=== PATIENT | male | born 1975 | race Caucasian/White ===

== ENCOUNTER 2018-02-07 12:37 | Emergency (ER) | payer MEDICAID | END 2018-02-07 17:56 | disposition left against medical advice (07) | LOC: ER 12:37 | DX: R51 Headache (principal); Z53.21 Procedure and treatment not carried out due to patient leaving prior to being seen by health care provider ==

== ENCOUNTER 2018-08-04 14:41 | Emergency (ER) | payer MEDICAID ==
[~2018-08-04] VITALS: Ht 188 cm; Wt 92.0 kg
[2018-08-04 14:49] VITALS: BP 142/86
== END 2018-08-04 15:28 | disposition home or self-care (01) ==
LOC: ER 14:42
DX: S81.012A Laceration without foreign body, left knee, initial encounter (principal); Z48.02 Encounter for removal of sutures; Z86.14 Personal history of Methicillin resistant Staphylococcus aureus infection; Z88.8 Allergy status to other drugs, medicaments and biological substances; W26.8XXA Contact with other sharp object(s), not elsewhere classified, initial encounter; Y93.89 Activity, other specified; Y92.89 Other specified places as the place of occurrence of the external cause; Y99.8 Other external cause status
CPT/HCPCS: 99281

== ENCOUNTER 2018-08-17 16:14 | Emergency (ER) | payer MEDICAID ==
[~2018-08-17] VITALS: Ht 190.5 cm; Wt 109.1 kg
[2018-08-17 16:29] VITALS: BP 130/70
[2018-08-17] MEDS ORDERED: DOXYCYCLINE 100MG CAPSULE PO STA (17:28)
[2018-08-17] MEDS ORDERED: cephalexin 250mg capsule PO ONE (17:30)
[2018-08-17 17:50] LABS: BASOPHILS # (AUTO) 0.1 X10'3 (0-0.2); BASOPHILS % (AUTO) 0.6 % (0-1); EOSINOPHILS # (AUTO) 0.2 X10'3 (0-0.9); EOSINOPHILS % (AUTO) 1.1 % (0-6); HEMATOCRIT 39.1 % (42.0-52.0); HEMOGLOBIN 13.1 g/dl (14.0-17.9); LYMPHOCYTES # (AUTO) 2.9 X10'3 (1.1-4.8); LYMPHOCYTES % (AUTO) 16.7 % (21-51); MEAN CORPUSCULAR HEMOGLOBIN 29.9 PG (27.0-31.0); MEAN CORPUSCULAR HGB CONC 33.6 g/dL (33.0-36.5); MEAN PLATELET VOLUME 6.8 FL (7.4-10.4); MONOCYTES # (AUTO) 1.5 X10'3 (0-0.9); MONOCYTES % (AUTO) 8.7 % (2-12); NEUTROPHILS # (AUTO) 12.5 X10'3 (1.8-7.7); NEUTROPHILS % (AUTO) 72.9 % (42-75); PLATELET COUNT 390 X10'3 (140-440); RED BLOOD COUNT 4.39 X10'6 (4.70-6.10); RED CELL DISTRIBUTION WIDTH 13.8 % (11.5-14.5); WHITE BLOOD COUNT 17.2 X10'3 (4.5-11.0)
[2018-08-17 18:00] LABS: ALBUMIN 3.5 G/DL (3.4-5.0); ANION GAP 7 (8-16); BLOOD UREA NITROGEN 28 MG/DL (7-18); BUN/CREATININE RATIO 26.9 (5.4-32.0); CALCIUM 8.8 MG/DL (8.5-10.1); CHLORIDE 103 MMOL/L (99-107); CREATININE 1.04 MG/DL (0.60-1.10); GLUCOSE 99 MG/DL (70-104); POTASSIUM 3.8 MMOL/L (3.5-5.1); SODIUM 138 MMOL/L (135-145); TOTAL CARBON DIOXIDE 27.9 MMOL/L (24-32); eGFR 79 ML/MIN
[2018-08-17] MEDS ORDERED: CEPH-572 PO (18:00)
[2018-08-17] MEDS ORDERED: DOXY100C2 PO (18:00)
[2018-08-17] MEDS ORDERED: HYDR-3965 PO (18:13)
--- NOTE | 2018-08-18 09:22 | NUR ---
PT. CALLED AND WAITED ON HOLD FOR 10 MINUTES. I PICKED UP THE PHONE AND THE LINE WAS OPEN BUT NO ONE ANSWERED. PT. 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 I ANSWERED THE CALL. PT. STATED THAT HE HAD LOST HIS PRESCRIPTIONS.... I LOOKED UP HIS VISIT TO FIND WE HAD WRITTEN FOR KEFLEX, DOXYCYCYLINE, AND NORCO.... I EXPLAINED TO THE PT. THAT I COULD CALL IN THE ANTI-BIOTICS FOR THE WOUND, BUT NOT THE NARCOTIC.... PT. STARTED YELLING AT ME SAYING' THIS IS FUCKING RIDICULOUS" "WHAT AM I SUPPOSED TO DO? FUCK YOU" I TOLD HIM THAT THE REASON WE DO NOT RE-WRITE FOR NARCOTICS IS, WE HAVE NO IDEA IF IT HAS ALREADY BEEN FILLED, LOST OR SOLD. I TOLD HIM AGAIN THAT I WOULD CALL IN THE ANTI-BIOTICS TO A PHARMACY FOR HIM. HE AGAIN STARTED YELLING YOU FUCKING ARTEMIO FUCK YOU. I ENDED THE CALL BY HANGING UP THE PHONE. THE PHONE RANG AGAIN AND I ANSWERED IT, THERE WAS ONLY A CLICK ON THE OTHER END.
--- NOTE | 2018-08-18 09:46 | NUR ---
PT'S MOTHER CAME TO THE ER TO PEAD HIS CASE. SHE WAS VERY NICE AND POLITE. I TOLD HER THE SAME THING. I EXPLAINED THE REASON WE COULD NOT RE-WRITE THE NARCOTIC BUT I WOULD BE HAPPY TO CALL IN THE ANTI-BIOTICS... MOTHER STATED THAT WAS ALL SHE WAS AFTER. SHE STATED THAT THE PT. WENT TO [facility] AND THE PHARMACY WAS CLOSED AND HE MUST HAVE LEFT HIS RX'S IN THE BASKET. MOTHER ASKED IF I COULD CALL IN THE RX FOR THE ANTIBIOTICS TO [facility] ON [address]
--- NOTE | 2018-08-18 10:00 | NUR ---
CALLED IN RX TO [facility] ON [address] FOR KEFLEX 500MG X2 Q 12 HOURS #28, DOXYCYCLINE 100MG PO BID X 7 DAYS #14 EXPLAINED TO PHARMASIST THAT THE PT. WILL BE LOOKING FOR THE NORCO ALSO, BUT THAT WE WERE NOT CALLING THAT RX IN BECAUSE THERE WAS A WRITTEN COPY SOMEWHERE. PT. LOST HIS RX.
== END 2018-08-17 18:22 | disposition home or self-care (01) ==
LOC: ER 16:14
DX: S81.012D Laceration without foreign body, left knee, subsequent encounter (principal); L08.9 Local infection of the skin and subcutaneous tissue, unspecified; Z79.2 Long term (current) use of antibiotics; Z79.899 Other long term (current) drug therapy; Z86.14 Personal history of Methicillin resistant Staphylococcus aureus infection; W26.8XXD Contact with other sharp object(s), not elsewhere classified, subsequent encounter
CPT/HCPCS: 36415; 80048; 85025; 99283

== ENCOUNTER 2019-07-13 18:32 | Inpatient (IN) | payer MEDICAID ==
[~2019-07-13] VITALS: Ht 190.5 cm; Wt 110.0 kg
[2019-07-13] MEDS ORDERED: normal saline 1000ML IV soln IV ONE (18:50)
[2019-07-13] MEDS ORDERED: CefTRIAXone 2gm/D5W 50ml 50 ML IV ONE (18:50)
[2019-07-13] MEDS ORDERED: vancomycin/NS 1 GM ADD-VANTAGE 250 ML IV ONE (18:50)
[2019-07-13] MEDS ORDERED: ketorolac trometh. 30mg/ml inj. IV ONE (18:50)
[2019-07-13] MEDS ORDERED: ketorolac tromethamine 15mg/ml inj. IV ONE (18:55)
[2019-07-13 19:16] LABS: BASOPHILS # (AUTO) 0.2 X10'3 (0-0.2); BASOPHILS % (AUTO) 0.8 % (0-1); EOSINOPHILS # (AUTO) 0.2 X10'3 (0-0.9); EOSINOPHILS % (AUTO) 0.8 % (0-6); HEMATOCRIT 41.8 % (42.0-52.0); HEMOGLOBIN 14.4 g/dl (14.0-17.9); LYMPHOCYTES # (AUTO) 2.8 X10'3 (1.1-4.8); MEAN CORPUSCULAR HGB CONC 34.5 g/dL (33.0-36.5); MEAN PLATELET VOLUME 7.3 FL (7.4-10.4); MONOCYTES # (AUTO) 2.1 X10'3 (0-0.9); MONOCYTES % (AUTO) 10.7 % (2-12); NEUTROPHILS # (AUTO) 14.6 X10'3 (1.8-7.7); NEUTROPHILS % (AUTO) 73.7 % (42-75); PLATELET COUNT 365 X10'3 (140-440); RED CELL DISTRIBUTION WIDTH 14.3 % (11.5-14.5); WHITE BLOOD COUNT 19.8 X10'3 (4.5-11.0)
[2019-07-13] MEDS ORDERED: iohexol 300mg/ml 100ml inj. ONE (19:17)
[2019-07-13 19:30] LABS: PARTIAL THROMBOPLASTIN TIME 26 SECONDS (22-32)
[2019-07-13 19:32] LABS: ALANINE AMINOTRANSFERASE 53 U/L (12-78); ALBUMIN 3.2 G/DL (3.4-5.0); ALBUMIN/GLOBULIN RATIO 0.7 (1.1-1.5); ALKALINE PHOSPHATASE 153 IU/L (46-116); ANION GAP 10 (8-16); ASPARTATE AMINO TRANSFERASE 33 U/L (10-37); BILIRUBIN,TOTAL 0.4 MG/DL (0.1-1.0); BLOOD UREA NITROGEN 14 MG/DL (7-18); BUN/CREATININE RATIO 12.8 (5.4-32.0); CALCIUM 8.4 MG/DL (8.5-10.1); CHLORIDE 103 MMOL/L (99-107); CREATININE 1.09 MG/DL (0.60-1.10); GLUCOSE 111 MG/DL (70-104); MAGNESIUM 1.9 MG/DL (1.5-2.4); POTASSIUM 4.1 MMOL/L (3.5-5.1); SODIUM 140 MMOL/L (135-145); TOTAL CARBON DIOXIDE 27.2 MMOL/L (24-32); TOTAL PROTEIN 7.6 G/DL (6.4-8.2); eGFR 75 ML/MIN
[2019-07-13 19:40] LABS: TOTAL CELLS COUNTED 100
[2019-07-13 19:41] LABS: PLATELET ESTIMATE NORMAL
[2019-07-13 20:12] LABS: CLARITY,URINE CLEAR (Clear); COLOR,URINE YELLOW (Yellow); GLUCOSE, URINE NEGATIVE (Neg); KETONES,URINE NEGATIVE (Neg); LEUKOCYTE ESTERASE ,URINE NEGATIVE (Neg); NITRITES, URINE NEGATIVE (Neg); OCCULT BLOOD,URINE NEGATIVE (Neg); PROTEIN,URINE NEGATIVE (Neg); UROBILINOGEN,URINE 0.2 E.U/dL (0.2-1.0)
[2019-07-13 20:17] LABS: UA COLLECTION TYPE VOIDED
[2019-07-13 20:24] LABS: URINE AMPHETAMINE SCREEN POSITIVE (Neg); URINE BARBITUATE SCREEN NEGATIVE (Neg); URINE BENZODIAZEPINES SCREEN NEGATIVE (Neg); URINE CANNABINOID SCREEN POSITIVE (Neg); URINE COCAINE SCREEN NEGATIVE (Neg); URINE METHADONE SCREEN NEGATIVE (Neg); URINE OPIATE SCREEN NEGATIVE (Neg); URINE PHENCYCLIDINE SCREEN NEGATIVE (Neg)
[2019-07-13] MEDS ORDERED: BACDS PO (21:27)
[2019-07-13] MEDS ORDERED: potassium CL 10mEq/100ml bag 100 ML IV PRN ×2 (22:10)
[2019-07-13] MEDS ORDERED: ondansetron/PF 4mg/2ml inj IV PRN (22:10)
[2019-07-13] MEDS ORDERED: magnesium Cl slow-release 64mg tablet PO PRN (22:10)
[2019-07-13] MEDS ORDERED: morphine 2 MG/ML inj. syringe IV PRN ×2 (22:10)
[2019-07-13] MEDS ORDERED: HYDROcodone/acetaminophen 5mg/325mg tablet PO PRN (22:10)
[2019-07-13] MEDS ORDERED: magnesium hydroxide 30ml (MOM) UD suspension PO PRN (22:10)
[2019-07-13] MEDS ORDERED: acetaminophen 325mg tablet PO PRN (22:10)
[2019-07-13] MEDS ORDERED: diphenhydrAMINE 25mg capsule PO PRN (22:10)
[2019-07-13] MEDS ORDERED: mag hydrox/Alum hydrox/simeth 30ml oral suspension PO PRN (22:10)
[2019-07-13] MEDS ORDERED: magnesium 4gm in 100ml NS 100 ML IV PRN (22:10)
[2019-07-13] MEDS ORDERED: potassium Cl 20 mEq SR tablet PO PRN ×2 (22:10)
[2019-07-13] MEDS ORDERED: magnesium 2GM in 50ml NS 50 ML IV PRN (22:10)
--- NOTE | 2019-07-13 23:45 | NUR ---
Patient arrived on the floor at on a wheelchair. Received report from Angela TO in the ER. He is saline locked, room air, a/o, no signs of distress and vss. Will continue to monitor
[2019-07-13 23:56] VITALS: BP 120/67
[2019-07-14] MEDS: VANCOMYCIN 1,500MG inj. 1,500 MG in normal saline 500ml IV soln 500 ML IV SCH ×2 (02:00→10:22)
--- NOTE | 2019-07-14 04:42 | NUR ---
Due to system unavailability all documentation completed is found in the paper chart during the following time frame: starting date: 07-13-2019 time: 2347 ending date: 07-14-2019 time:[id number]
[2019-07-14 05:22] LABS: BASOPHILS % (AUTO) 0.2 % (0-1); EOSINOPHILS # (AUTO) 0.2 X10'3 (0-0.9); EOSINOPHILS % (AUTO) 1.3 % (0-6); HEMATOCRIT 40.5 % (42.0-52.0); HEMOGLOBIN 13.8 g/dl (14.0-17.9); LYMPHOCYTES # (AUTO) 3.2 X10'3 (1.1-4.8); LYMPHOCYTES % (AUTO) 17.9 % (21-51); MEAN CORPUSCULAR HEMOGLOBIN 29.8 PG (27.0-31.0); MEAN CORPUSCULAR VOLUME 87.9 FL (78-98); MEAN PLATELET VOLUME 7.7 FL (7.4-10.4); MONOCYTES # (AUTO) 1.9 X10'3 (0-0.9); MONOCYTES % (AUTO) 10.4 % (2-12); NEUTROPHILS # (AUTO) 12.7 X10'3 (1.8-7.7); NEUTROPHILS % (AUTO) 70.2 % (42-75); PLATELET COUNT 334 X10'3 (140-440); RED BLOOD COUNT 4.61 X10'6 (4.70-6.10); RED CELL DISTRIBUTION WIDTH 14.1 % (11.5-14.5); WHITE BLOOD COUNT 18.1 X10'3 (4.5-11.0)
[2019-07-14 05:40] LABS: ALANINE AMINOTRANSFERASE 48 U/L (12-78); ALBUMIN 2.9 G/DL (3.4-5.0); ALBUMIN/GLOBULIN RATIO 0.7 (1.1-1.5); ALKALINE PHOSPHATASE 145 IU/L (46-116); ANION GAP 6 (8-16); ASPARTATE AMINO TRANSFERASE 28 U/L (10-37); BILIRUBIN,TOTAL 0.5 MG/DL (0.1-1.0); BLOOD UREA NITROGEN 11 MG/DL (7-18); BUN/CREATININE RATIO 11.7 (5.4-32.0); CALCIUM 8.2 MG/DL (8.5-10.1); CHLORIDE 105 MMOL/L (99-107); CREATININE 0.94 MG/DL (0.60-1.10); GLUCOSE 100 MG/DL (70-104); MAGNESIUM 1.9 MG/DL (1.5-2.4); POTASSIUM 4.7 MMOL/L (3.5-5.1); SODIUM 139 MMOL/L (135-145); TOTAL CARBON DIOXIDE 27.9 MMOL/L (24-32); eGFR 88 ML/MIN
--- NOTE | 2019-07-14 06:29 | NUR ---
Problems reprioritized. Patient report given, questions answered & plan of care reviewed with Ronel TO.
--- NOTE | 2019-07-14 06:43 | NUR ---
Patient in room [facility] 350. I have received report from YOUSUF Bernal and had the opportunity to ask questions and assume patient care.
[2019-07-14] MEDS: K and/or MAG REPLACEMENT MC SCH ×2 (06:47→20:00)
[2019-07-14] MEDS: piperacillin/tazo 3.375gm/50ml 50 ML IV SCH ×3 (07:30→23:36)
[2019-07-14] MEDS: enoxaparin 40mg/0.4ml syringe SUBCUT SCH (07:30)
[2019-07-14 07:39] VITALS: BP 143/82
--- NOTE | 2019-07-14 11:00 | NUR ---
Patient's mother called and spoke with primary nurse. Per the patient's mother, the patient has been threatening to, "take my machete and cut off all of your heads". Patient apparently, is also wanted by [employer] and states, "they will have to shoot me before I will go with them". medical staff services coordinator consulted and MD aware. Patient has been very pleasant today and has not made any aggressive comments toward anyone or himself.
[2019-07-14 11:04] VITALS: BP 136/88
[2019-07-14] MEDS ORDERED: acetaminophen 325mg tablet PO PRN (12:30)
[2019-07-14] MEDS: ketorolac tromethamine 15mg/ml inj. IV PRN ×2 (13:11→19:11)
[2019-07-14] MEDS ORDERED: VANCOMYCIN 1,500MG inj. 1,500 MG in normal saline 500ml IV soln 500 ML IV SCH ×2 (14:00→16:57)
[2019-07-14] MEDS ORDERED: VANCOMYCIN LEVEL IV ONE (15:30)
[2019-07-14] MEDS ORDERED: NORMAL SALINE IV SCH (18:00)
[2019-07-14] MEDS ORDERED: VANCOMYCIN IV SCH (18:00)
--- NOTE | 2019-07-14 18:17 | NUR ---
Problems reprioritized. Patient report given, questions answered & plan of care reviewed with YOUSUF Bernal.
--- NOTE | 2019-07-14 18:29 | NUR ---
Patient in room [facility]ANET 350. I have received report from Ronel TO and had the opportunity to ask questions and assume patient care.
[2019-07-14] MEDS: lactobacillus rhamnosus 10,000 MMU CELLS/CAPSULE PO SCH (19:10)
[2019-07-14 20:00] VITALS: BP 146/87
[2019-07-15] VITALS: BP 132/71
[2019-07-15] MEDS: ketorolac tromethamine 15mg/ml inj. IV PRN ×3 (01:18→18:31)
[2019-07-15] MEDS: VANCOMYCIN 1,500MG inj. 1,500 MG in normal saline 500ml IV soln 500 ML IV SCH ×2 (02:46→09:43)
--- NOTE | 2019-07-15 06:46 | NUR ---
Problems reprioritized. Patient report given, questions answered & plan of care reviewed with Ivett TO.
[2019-07-15] MEDS ORDERED: VANCOMYCIN LEVEL IV ONE (07:30)
[2019-07-15 07:44] LABS: BASOPHILS # (AUTO) 0.1 X10'3 (0-0.2); BASOPHILS % (AUTO) 0.4 % (0-1); EOSINOPHILS # (AUTO) 0.3 X10'3 (0-0.9); EOSINOPHILS % (AUTO) 1.6 % (0-6); HEMATOCRIT 41.1 % (42.0-52.0); HEMOGLOBIN 14.2 g/dl (14.0-17.9); LYMPHOCYTES # (AUTO) 2.2 X10'3 (1.1-4.8); LYMPHOCYTES % (AUTO) 13.7 % (21-51); MEAN CORPUSCULAR HEMOGLOBIN 30.2 PG (27.0-31.0); MEAN CORPUSCULAR HGB CONC 34.6 g/dL (33.0-36.5); MEAN CORPUSCULAR VOLUME 87.2 FL (78-98); MEAN PLATELET VOLUME 7.3 FL (7.4-10.4); MONOCYTES # (AUTO) 1.3 X10'3 (0-0.9); MONOCYTES % (AUTO) 8.2 % (2-12); NEUTROPHILS # (AUTO) 12.2 X10'3 (1.8-7.7); NEUTROPHILS % (AUTO) 76.1 % (42-75); PLATELET COUNT 348 X10'3 (140-440); RED BLOOD COUNT 4.71 X10'6 (4.70-6.10)
[2019-07-15 07:56] LABS: ALANINE AMINOTRANSFERASE 49 U/L (12-78); ALBUMIN 3.1 G/DL (3.4-5.0); ALBUMIN/GLOBULIN RATIO 0.7 (1.1-1.5); ALKALINE PHOSPHATASE 151 IU/L (46-116); ANION GAP 10 (8-16); ASPARTATE AMINO TRANSFERASE 24 U/L (10-37); BILIRUBIN,TOTAL 0.7 MG/DL (0.1-1.0); BLOOD UREA NITROGEN 13 MG/DL (7-18); BUN/CREATININE RATIO 11.2 (5.4-32.0); CHLORIDE 104 MMOL/L (99-107); CREATININE 1.16 MG/DL (0.60-1.10); GLUCOSE 100 MG/DL (70-104); POTASSIUM 4.4 MMOL/L (3.5-5.1); SODIUM 140 MMOL/L (135-145); TOTAL CARBON DIOXIDE 25.9 MMOL/L (24-32); TOTAL PROTEIN 7.5 G/DL (6.4-8.2); eGFR 69 ML/MIN
[2019-07-15 07:57] LABS: MAGNESIUM 1.9 MG/DL (1.5-2.4)
[2019-07-15 07:58] LABS: VANCOMYCIN,TROUGH 23.4 UG/ML (6.0-14.0)
[2019-07-15] MEDS: K and/or MAG REPLACEMENT MC SCH ×2 (08:00→20:00)
[2019-07-15] MEDS: piperacillin/tazo 3.375gm/50ml 50 ML IV SCH ×2 (08:01→15:06)
[2019-07-15] MEDS: lactobacillus rhamnosus 10,000 MMU CELLS/CAPSULE PO SCH ×2 (08:02→21:00)
[2019-07-15] MEDS: enoxaparin 40mg/0.4ml syringe SUBCUT SCH (08:02)
[2019-07-15 10:56] VITALS: BP 136/90
[2019-07-15] MEDS: VANCOmycin 1250MG/NS 250ml Bag 250 ML IV SCH ×2 (15:05→21:00)
[2019-07-15] MEDS ORDERED: normal saline 1000ml 1,000 ML IV ONE (15:40)
[2019-07-15] MEDS ORDERED: normal saline 1000ml 1,000 ML IV SCH (15:40)
--- NOTE | 2019-07-15 16:38 | NUR ---
PAGER ID: [phone] MESSAGE: Isidro Jiménez [id number] FYI Allergies state pt. is allergic to iodine- already had CT with IV contrast. Pt. states allergy from mother but is not true -he is not allergic to shellfish or iodine. will cont. with CT unless you call .
--- NOTE | 2019-07-15 17:36 | NUR ---
PAGER ID: [phone] MESSAGE: Isidro Jiménez requesting anxiety medication- Ativan, r/t feeling like the world is closing in on him. try non- pharmaceutical therapies which are so far ineffective. Ivett [id number]
[2019-07-15] MEDS ORDERED: LORazepam 1 MG tablet PO ONE (17:40)
--- NOTE | 2019-07-15 18:47 | NUR ---
Gave report to Fito TO.
[2019-07-15 20:00] VITALS: BP 144/82
--- NOTE | 2019-07-15 21:34 | NUR ---
report called to [facility], given to YOUSUF Lnog. Awaiting arrival for transport at this time
[2019-07-15 21:45] VITALS: BP 149/109
--- NOTE | 2019-07-15 21:55 | NUR ---
pt departed with medical transport, VS at time of departure HR88 RR 16 96%RA 149/105 98.5 temp F all belonging present per patient,
[2019-07-16] MEDS ORDERED: VANCOMYCIN LEVEL IV ONE (02:30)
== END 2019-07-15 21:45 | disposition short-term general hospital (02) | DRG 383 ==
LOC: ER 18:33 → ED HOLD 22:14 → SUR 3N 23:17 → CMPBEDREQ 23:17
PROVIDERS: ADMIT Internal Medicine; ATTEND Family Medicine
DX: L03.211 Cellulitis of face (principal); R45.851 Suicidal ideations; F15.10 Other stimulant abuse, uncomplicated; L02.91 Cutaneous abscess, unspecified; F12.90 Cannabis use, unspecified, uncomplicated; Z82.49 Family history of ischemic heart disease and other diseases of the circulatory system; Z83.3 Family history of diabetes mellitus
CPT/HCPCS: 36415; 70491; 80053; 80202; 80305; 81003; 83605; 83735; 84145; 85025; 85610; 85730; 87040; 87070; 87075; 87081; 87102; 93005; G0378; J0696; J1650; J1885; J2270; J2543; J3370; J7030; J7040; Q9967

== ENCOUNTER 2020-07-01 15:47 | Emergency (ER) | payer SELFPAY ==
[~2020-07-01] VITALS: Ht 190.5 cm; Wt 110.0 kg
[~2020-07-01 15:47] MED LIST: SULF1TAB45 PO
[2020-07-01] MEDS ORDERED: TETanus/Pertussis (Acell)/Diphther VAC/PF (Tdap-Adult) 0.5ml syringe IMVAC ONE (16:10)
[2020-07-01 16:13] LABS: BASOPHILS # (AUTO) 0.1 X10'3 (0-0.2); BASOPHILS % (AUTO) 0.9 % (0-1); EOSINOPHILS # (AUTO) 0.2 X10'3 (0-0.9); EOSINOPHILS % (AUTO) 1.4 % (0-6); HEMATOCRIT 45.2 % (42.0-52.0); HEMOGLOBIN 15.1 g/dl (14.0-17.9); LYMPHOCYTES # (AUTO) 3.9 X10'3 (1.1-4.8); LYMPHOCYTES % (AUTO) 27.4 % (21-51); MEAN CORPUSCULAR HEMOGLOBIN 29.9 PG (27.0-31.0); MEAN CORPUSCULAR HGB CONC 33.3 g/dL (33.0-36.5); MEAN CORPUSCULAR VOLUME 89.8 FL (78-98); MEAN PLATELET VOLUME 7.1 FL (7.4-10.4); MONOCYTES # (AUTO) 0.9 X10'3 (0-0.9); MONOCYTES % (AUTO) 6.2 % (2-12); NEUTROPHILS % (AUTO) 64.1 % (42-75); PLATELET COUNT 441 X10'3 (140-440); RED BLOOD COUNT 5.03 X10'6 (4.70-6.10); RED CELL DISTRIBUTION WIDTH 14.2 % (11.5-14.5); WHITE BLOOD COUNT 14.1 X10'3 (4.5-11.0)
[2020-07-01] MEDS ORDERED: LIDOcaine 1% W/epiNEPHrine 1:200,000 10ml vial IJ ONE (16:15)
[2020-07-01 16:17] LABS: CLARITY,URINE CLEAR (Clear); COLOR,URINE STRAW (Yellow); GLUCOSE, URINE NEGATIVE (Neg); KETONES,URINE NEGATIVE (Neg); LEUKOCYTE ESTERASE ,URINE NEGATIVE (Neg); NITRITES, URINE NEGATIVE (Neg); OCCULT BLOOD,URINE NEGATIVE (Neg); PROTEIN,URINE NEGATIVE (Neg); UROBILINOGEN,URINE 0.2 E.U/dL (0.2-1.0)
[2020-07-01 16:24] LABS: UA COLLECTION TYPE VOIDED
[2020-07-01] MEDS ORDERED: NITR100C6 PO (16:25)
[2020-07-01 16:31] LABS: ALANINE AMINOTRANSFERASE 26 U/L (12-78); ALKALINE PHOSPHATASE 148 IU/L (46-116); ANION GAP 5 (8-16); ASPARTATE AMINO TRANSFERASE 11 U/L (10-37); BILIRUBIN,TOTAL 0.3 MG/DL (0.1-1.0); BLOOD UREA NITROGEN 18 MG/DL (7-18); CHLORIDE 102 MMOL/L (99-107); CREATININE 1.06 MG/DL (0.60-1.10); GLUCOSE 106 MG/DL (70-104); LIPASE 802 U/L (73-393); SODIUM 139 MMOL/L (135-145); TOTAL CARBON DIOXIDE 31.8 MMOL/L (24-32); TOTAL PROTEIN 7.9 G/DL (6.4-8.2); eGFR 77 ML/MIN
[2020-07-01] MEDS ORDERED: CefTRIAXone 1000mg IM Kit (w/lidocaine diluent) IM STA (16:37)
[2020-07-01] MEDS ORDERED: azithromycin 250mg tablet PO ONE (16:40)
[2020-07-01 16:52] VITALS: BP 138/70
== END 2020-07-01 17:08 | disposition home or self-care (01) ==
LOC: ER 15:48
DX: S01.01XA Laceration without foreign body of scalp, initial encounter (principal); N39.0 Urinary tract infection, site not specified; Z20.3 Contact with and (suspected) exposure to rabies; Z86.14 Personal history of Methicillin resistant Staphylococcus aureus infection; Z88.8 Allergy status to other drugs, medicaments and biological substances; Z79.2 Long term (current) use of antibiotics; Z79.899 Other long term (current) drug therapy; X58.XXXA Exposure to other specified factors, initial encounter; Y93.89 Activity, other specified; Y92.89 Other specified places as the place of occurrence of the external cause; Y99.8 Other external cause status
CPT/HCPCS: 12001; 36415; 80053; 81003; 83690; 85025; 87491; 87591; 90471; 90715; 96372; 99284; J0696

== ENCOUNTER 2021-01-11 08:00 | Emergency (ER) | payer MEDICAID ==
[~2021-01-11] VITALS: Ht 188 cm; Wt 109.1 kg
[~2021-01-11 08:00] MED LIST changes: +NITR100C6 PO
[2021-01-11 08:12] VITALS: BP 143/101
== END 2021-01-11 08:19 | disposition home or self-care (01) ==
LOC: ER 08:01
DX: Z04.1 Encounter for examination and observation following transport accident (principal); Z88.8 Allergy status to other drugs, medicaments and biological substances; Z79.2 Long term (current) use of antibiotics; Z79.899 Other long term (current) drug therapy
CPT/HCPCS: 99283

== ENCOUNTER 2021-03-30 22:12 | Emergency (ER) | payer MEDICAID ==
[~2021-03-30] VITALS: Ht 188 cm; Wt 104.5 kg
[2021-03-31 01:24] VITALS: BP 139/96
== END 2021-03-31 03:59 | disposition left against medical advice (07) ==
LOC: ER 22:13
DX: M79.642 Pain in left hand (principal); Z53.21 Procedure and treatment not carried out due to patient leaving prior to being seen by health care provider

== ENCOUNTER 2021-09-23 04:01 | Emergency (ER) | payer MEDICAID ==
[~2021-09-23] VITALS: Ht 188 cm; Wt 93.8 kg
[2021-09-23 04:12] VITALS: BP 166/101
[2021-09-24] MEDS ORDERED: IBUP-1985 PO (14:47)
[2021-09-24] MEDS ORDERED: DOXY100C97 PO (14:47)
== END 2021-09-23 06:08 | disposition left against medical advice (07) ==
LOC: ER 04:02 → MERGE 04:02 → ER 06:08
DX: M79.601 Pain in right arm (principal); Z53.21 Procedure and treatment not carried out due to patient leaving prior to being seen by health care provider

== ENCOUNTER 2021-09-24 11:26 | Emergency (ER) | payer MEDICAID ==
[~2021-09-24] VITALS: Ht 188 cm; Wt 103.0 kg
[2021-09-24 11:42] VITALS: BP 137/88
[2021-09-24] MEDS ORDERED: DOXY100C97 PO (14:47)
[2021-09-24] MEDS ORDERED: IBUP-1985 PO (14:47)
[2021-09-24] MEDS ORDERED: DOXYCYCLINE 100MG CAPSULE PO STA (14:48)
[2021-09-24] MEDS ORDERED: ibuprofen tablet 400 MG TABLET PO ONE (14:50)
== END 2021-09-24 15:10 | disposition home or self-care (01) ==
LOC: ER 11:26
DX: S82.151A Displaced fracture of right tibial tuberosity, initial encounter for closed fracture (principal); Z86.14 Personal history of Methicillin resistant Staphylococcus aureus infection; Z79.899 Other long term (current) drug therapy; V89.2XXA Person injured in unspecified motor-vehicle accident, traffic, initial encounter; Y93.89 Activity, other specified; Y92.89 Other specified places as the place of occurrence of the external cause; Y99.8 Other external cause status
CPT/HCPCS: 73564; 93971; 99284

== ENCOUNTER 2022-01-03 10:40 | Emergency (ER) | payer MEDICAID ==
[~2022-01-03] VITALS: Ht 188 cm; Wt 104.5 kg
[~2022-01-03 10:40] MED LIST changes: +IBUP-1985 PO
[2022-01-03 10:48] VITALS: BP 115/82
[2022-01-03 11:26] LABS: CLARITY,URINE CLEAR (Clear); COLOR,URINE YELLOW (Yellow); GLUCOSE, URINE NEGATIVE (Neg); KETONES,URINE NEGATIVE (Neg); LEUKOCYTE ESTERASE ,URINE NEGATIVE (Neg); NITRITES, URINE NEGATIVE (Neg); OCCULT BLOOD,URINE NEGATIVE (Neg); PROTEIN,URINE NEGATIVE (Neg); UROBILINOGEN,URINE 0.2 E.U/dL (0.2-1.0)
[2022-01-03 11:35] LABS: UA COLLECTION TYPE VOIDED
--- NOTE | 2022-01-03 15:10 | NUR ---
PT SEEN BY STAFF LEAVING THE ER
== END 2022-01-03 15:34 | disposition left against medical advice (07) ==
LOC: ER 10:41
DX: R30.9 Painful micturition, unspecified (principal); Z53.21 Procedure and treatment not carried out due to patient leaving prior to being seen by health care provider
CPT/HCPCS: 81003

== ENCOUNTER 2022-03-07 20:31 | Emergency (ER) | payer MEDICAID ==
[2022-03-08] MEDS ORDERED: SULF1TAB49 PO (17:19)
== END 2022-03-07 22:13 | disposition left against medical advice (07) ==
LOC: ER 20:32
DX: M79.603 Pain in arm, unspecified (principal); Z53.21 Procedure and treatment not carried out due to patient leaving prior to being seen by health care provider

== ENCOUNTER → 2022-03-08 | Emergency (ER) | payer MEDICAID ==
[~2022-03-08] VITALS: Ht 188 cm; Wt 100.0 kg
[~2022-03-08] MED LIST changes: +LIDOCAINE 1%/EPI 1:100,000 inj. 10 ML multi-dose vial SQ ONE; +LIDOcaine 1% W/epiNEPHrine 1:100,000 20ml vial SQ ONE; +SULF1TAB49 PO; +cephalexin 500mg capsule PO ONE; +sulfamethoxazole/trimethoprim DS (800/160mg) tablet PO ONE
[2022-03-08 15:32] VITALS: BP 129/84
== END | disposition home or self-care (01) ==
LOC: ER 13:36
DX: L02.211 Cutaneous abscess of abdominal wall (principal); Z86.14 Personal history of Methicillin resistant Staphylococcus aureus infection; Z79.899 Other long term (current) drug therapy
CPT/HCPCS: 10060; 99283; A6258; A6449

== ENCOUNTER 2022-07-02 07:53 | Emergency (ER) | payer MEDICAID ==
[~2022-07-02] VITALS: Ht 188 cm; Wt 102.3 kg
[~2022-07-02 07:53] MED LIST changes: -LIDOCAINE 1%/EPI 1:100,000 inj. 10 ML multi-dose vial SQ ONE; -LIDOcaine 1% W/epiNEPHrine 1:100,000 20ml vial SQ ONE; -SULF1TAB49 PO; -cephalexin 500mg capsule PO ONE; -sulfamethoxazole/trimethoprim DS (800/160mg) tablet PO ONE
[2022-07-02 08:02] VITALS: BP 124/89
[2022-07-02 10:01] LABS: CLARITY,URINE SLIGHTLY CLOUDY (Clear); COLOR,URINE YELLOW (Yellow); GLUCOSE, URINE NEGATIVE (Neg); KETONES,URINE NEGATIVE (Neg); LEUKOCYTE ESTERASE ,URINE NEGATIVE (Neg); NITRITES, URINE NEGATIVE (Neg); OCCULT BLOOD,URINE NEGATIVE (Neg); PROTEIN,URINE TRACE mg/dl (Neg); UROBILINOGEN,URINE 0.2 E.U/dL (0.2-1.0)
[2022-07-02 10:02] LABS: UA COLLECTION TYPE CLN CATCH MIDSTREAM
[2022-07-02 10:07] LABS: BASOPHILS % (AUTO) 0.5 % (0-1); EOSINOPHILS # (AUTO) 0.1 X10'3 (0-0.9); EOSINOPHILS % (AUTO) 0.9 % (0-6); HEMATOCRIT 46.8 % (42.0-52.0); HEMOGLOBIN 15.1 g/dl (14.0-17.9); LYMPHOCYTES # (AUTO) 2.2 X10'3 (1.1-4.8); LYMPHOCYTES % (AUTO) 21.7 % (21-51); MEAN CORPUSCULAR HGB CONC 32.3 g/dL (33.0-36.5); MEAN CORPUSCULAR VOLUME 89.7 FL (78-98); MEAN PLATELET VOLUME 7.1 FL (7.4-10.4); MONOCYTES # (AUTO) 0.8 X10'3 (0-0.9); NEUTROPHILS % (AUTO) 68.9 % (42-75); PLATELET COUNT 391 X10'3 (140-440); RED BLOOD COUNT 5.22 X10'6 (4.70-6.10); RED CELL DISTRIBUTION WIDTH 14.9 % (11.5-14.5); WHITE BLOOD COUNT 10.2 X10'3 (4.5-11.0)
[2022-07-02 10:22] LABS: BACTERIA,URINE 2+ /HPF (Neg); RBC,URINE NONE SEEN /HPF (0-2); SPERM MANY /HPF (NEGATIVE); SQUAMOUS EPITHELIAL CELL,UR NONE SEEN /LPF (FEW)
[2022-07-02 10:32] LABS: ALANINE AMINOTRANSFERASE 25 U/L (12-78); ALBUMIN 4.3 G/DL (3.4-5.0); ALBUMIN/GLOBULIN RATIO 1.1 (1.1-1.5); ALKALINE PHOSPHATASE 132 IU/L (46-116); ANION GAP 7 (8-16); ASPARTATE AMINO TRANSFERASE 20 U/L (10-37); BILIRUBIN,TOTAL 0.6 MG/DL (0.1-1.0); BLOOD UREA NITROGEN 22 MG/DL (7-18); BUN/CREATININE RATIO 26.8 (5.4-32.0); CALCIUM 9.1 MG/DL (8.5-10.1); CHLORIDE 102 MMOL/L (99-107); CREATININE 0.82 MG/DL (0.60-1.10); GLUCOSE 106 MG/DL (70-104); POTASSIUM 4.9 MMOL/L (3.5-5.1); SODIUM 138 MMOL/L (135-145); TOTAL CARBON DIOXIDE 29.5 MMOL/L (24-32); TOTAL PROTEIN 8.3 G/DL (6.4-8.2); eGFR > 90 ML/MIN
== END 2022-07-02 11:12 | disposition home or self-care (01) ==
LOC: ER 07:53
DX: R25.1 Tremor, unspecified (principal); R61 Generalized hyperhidrosis; F12.90 Cannabis use, unspecified, uncomplicated; Z86.14 Personal history of Methicillin resistant Staphylococcus aureus infection; Z79.899 Other long term (current) drug therapy
CPT/HCPCS: 36415; 71045; 80053; 81001; 83605; 84145; 85025; 87088; 99284

== ENCOUNTER 2022-09-20 08:43 | Emergency (ER) | payer MEDICAID ==
[~2022-09-20] VITALS: Ht 188 cm; Wt 100.0 kg
[2022-09-20 08:54] VITALS: BP 122/80
[2022-09-20 09:38] LABS: URINE AMPHETAMINE SCREEN NEGATIVE (Neg); URINE BARBITUATE SCREEN NEGATIVE (Neg); URINE BENZODIAZEPINES SCREEN NEGATIVE (Neg); URINE CANNABINOID SCREEN NEGATIVE (Neg); URINE COCAINE SCREEN NEGATIVE (Neg); URINE METHADONE SCREEN POSITIVE (Neg); URINE OPIATE SCREEN NEGATIVE (Neg); URINE PHENCYCLIDINE SCREEN NEGATIVE (Neg)
[2022-09-20 09:40] LABS: BASOPHILS # (AUTO) 0.1 X10'3 (0-0.2); BASOPHILS % (AUTO) 0.9 % (0-1); EOSINOPHILS # (AUTO) 0.2 X10'3 (0-0.9); EOSINOPHILS % (AUTO) 3.3 % (0-6); HEMATOCRIT 39.8 % (42.0-52.0); HEMOGLOBIN 13.4 g/dl (14.0-17.9); LYMPHOCYTES # (AUTO) 2.6 X10'3 (1.1-4.8); LYMPHOCYTES % (AUTO) 36.2 % (21-51); MEAN CORPUSCULAR HEMOGLOBIN 29.7 PG (27.0-31.0); MEAN CORPUSCULAR HGB CONC 33.7 g/dL (33.0-36.5); MEAN CORPUSCULAR VOLUME 88.3 FL (78-98); MEAN PLATELET VOLUME 7.2 FL (7.4-10.4); MONOCYTES # (AUTO) 0.7 X10'3 (0-0.9); MONOCYTES % (AUTO) 9.5 % (2-12); NEUTROPHILS # (AUTO) 3.5 X10'3 (1.8-7.7); NEUTROPHILS % (AUTO) 50.1 % (42-75); PLATELET COUNT 339 X10'3 (140-440); RED BLOOD COUNT 4.51 X10'6 (4.70-6.10); RED CELL DISTRIBUTION WIDTH 13.9 % (11.5-14.5); WHITE BLOOD COUNT 7.1 X10'3 (4.5-11.0)
[2022-09-20 09:50] LABS: ALANINE AMINOTRANSFERASE 28 U/L (12-78); ALBUMIN/GLOBULIN RATIO 1.2 (1.1-1.5); ALKALINE PHOSPHATASE 116 IU/L (46-116); ANION GAP 5 (8-16); ASPARTATE AMINO TRANSFERASE 24 U/L (10-37); BILIRUBIN,TOTAL 0.5 MG/DL (0.1-1.0); BLOOD UREA NITROGEN 20 MG/DL (7-18); BUN/CREATININE RATIO 21.1 (10.0-20.0); CHLORIDE 102 MMOL/L (99-107); CREATININE 0.95 MG/DL (0.60-1.10); GLUCOSE 96 MG/DL (70-104); POTASSIUM 4.3 MMOL/L (3.5-5.1); SODIUM 136 MMOL/L (135-145); TOTAL CARBON DIOXIDE 29.4 MMOL/L (24-32); TOTAL PROTEIN 7.4 G/DL (6.4-8.2); eGFR 86 ML/MIN
[2022-09-20 09:55] LABS: ETHANOL < 0.010 GM/DL (0.0-0.010)
== END 2022-09-20 12:12 | disposition home or self-care (01) ==
LOC: ER 08:43
DX: F32.9 Major depressive disorder, single episode, unspecified (principal); F41.9 Anxiety disorder, unspecified; Z86.14 Personal history of Methicillin resistant Staphylococcus aureus infection; Z79.899 Other long term (current) drug therapy
CPT/HCPCS: 36415; 80053; 80305; 80320; 85025; 99284